=== PATIENT | male | born 1945 | race Caucasian/White ===

== ENCOUNTER → 2016-07-05 | Outpatient (CLI) | payer MEDICARE, OTHER ==
[2016-07-05 09:45] LABS: HEMATOCRIT 47.1 % (39.0-53.0); HEMOGLOBIN 16.1 g/dL (13.0-17.5)
== END | disposition home or self-care (01) ==
LOC: LAB 08:55
PROVIDERS: ATTEND Emergency Medicine
DX: D75.1 Secondary polycythemia (principal)
CPT/HCPCS: 36415; 85014; 85018; 99195

== ENCOUNTER → 2017-07-03 | Outpatient (CLI) | payer MEDICARE, OTHER ==
[2017-07-03 09:16] LABS: HEMATOCRIT 50.5 % (39.0-53.0); HEMOGLOBIN 17.1 g/dL (13.0-17.5)
== END | disposition home or self-care (01) ==
LOC: LAB 08:49
PROVIDERS: ATTEND Emergency Medicine
DX: D75.1 Secondary polycythemia (principal); E03.8 Other specified hypothyroidism
CPT/HCPCS: 36415; 85014; 85018; 99195

== ENCOUNTER → 2017-10-30 | Outpatient (CLI) | payer MEDICARE, OTHER ==
[2017-10-30 08:38] LABS: HEMATOCRIT 50.1 % (39.0-53.0); HEMOGLOBIN 16.8 g/dL (13.0-17.5)
== END | disposition home or self-care (01) ==
LOC: LAB 08:15
PROVIDERS: ATTEND Emergency Medicine
DX: D75.1 Secondary polycythemia (principal)
CPT/HCPCS: 36415; 85014; 85018; 99195

== ENCOUNTER → 2018-01-17 | Outpatient (CLI) | payer MEDICARE, OTHER ==
[2018-01-17 09:44] LABS: HEMATOCRIT 49.1 % (39.0-53.0); HEMOGLOBIN 16.5 g/dL (13.0-17.5)
== END | disposition home or self-care (01) ==
LOC: LAB 09:22
PROVIDERS: ATTEND Emergency Medicine
DX: D75.1 Secondary polycythemia (principal)
CPT/HCPCS: 36415; 85014; 85018; 99195

== ENCOUNTER → 2019-08-27 | Outpatient (CLI) | payer MEDICARE ==
[2019-08-27 08:29] LABS: HEMATOCRIT 51.2 % (39.0-53.0)
== END | disposition home or self-care (01) ==
LOC: LAB 08:04
PROVIDERS: ATTEND Emergency Medicine
DX: D75.1 Secondary polycythemia (principal)
CPT/HCPCS: 36415; 85014; 85018; 99195

== ENCOUNTER → 2019-12-02 | Outpatient (CLI) | payer MEDICARE ==
[2019-12-02 09:22] LABS: HEMATOCRIT 50.3 % (39.0-53.0); HEMOGLOBIN 16.6 g/dL (13.0-17.5)
== END | disposition home or self-care (01) ==
LOC: LAB 08:43
PROVIDERS: ATTEND Emergency Medicine
DX: D76.1 Hemophagocytic lymphohistiocytosis (principal)
CPT/HCPCS: 36415; 85014; 85018; 99195

== ENCOUNTER → 2020-02-24 | Outpatient (CLI) | payer MEDICARE ==
[2020-02-24 09:10] LABS: HEMATOCRIT 50.8 % (39.0-53.0); HEMOGLOBIN 16.7 g/dL (13.0-17.5)
== END ==
LOC: LAB 08:34
PROVIDERS: ATTEND Emergency Medicine
DX: D75.1 Secondary polycythemia (principal)
CPT/HCPCS: 36415; 85014; 85018; 99195

== ENCOUNTER → 2020-06-17 | Outpatient (CLI) | payer MEDICARE ==
[2020-06-17 08:09] LABS: HEMATOCRIT 48.3 % (39.0-53.0); HEMOGLOBIN 16.1 g/dL (13.0-17.5)
== END | disposition home or self-care (01) ==
LOC: LAB 07:45
PROVIDERS: ATTEND Emergency Medicine
DX: D75.1 Secondary polycythemia (principal)
CPT/HCPCS: 36415; 85014; 85018; 99195

== ENCOUNTER → 2020-09-28 | Outpatient (CLI) | payer MEDICARE ==
[2020-09-28 07:59] LABS: HEMATOCRIT 46.7 % (39.0-53.0); HEMOGLOBIN 15.6 g/dL (13.0-17.5)
== END ==
LOC: LAB 07:29
PROVIDERS: ATTEND Emergency Medicine
DX: D75.1 Secondary polycythemia (principal)
CPT/HCPCS: 36415; 85014; 85018; 99195

== ENCOUNTER → 2021-01-09 | Outpatient (CLI) | payer MEDICARE ==
[2021-01-09 09:51] LABS: HEMATOCRIT 48.5 % (39.0-53.0); HEMOGLOBIN 16.2 g/dL (13.0-17.5)
== END ==
LOC: LAB 09:24
PROVIDERS: ATTEND Emergency Medicine
DX: D75.1 Secondary polycythemia (principal)
CPT/HCPCS: 36415; 85014; 85018; 99195

== ENCOUNTER → 2021-04-10 | Outpatient (CLI) | payer MEDICARE ==
[2021-04-10 08:33] LABS: HEMATOCRIT 50.7 % (39.0-53.0); HEMOGLOBIN 16.9 g/dL (13.0-17.5)
== END | disposition home or self-care (01) ==
LOC: LAB 07:57
PROVIDERS: ATTEND Emergency Medicine
DX: D75.1 Secondary polycythemia (principal)
CPT/HCPCS: 36415; 85014; 85018; 99195

== ENCOUNTER → 2021-06-07 | Outpatient (CLI) | payer MEDICARE ==
[2021-06-07 08:48] LABS: BASO # 0.1 x10^3/uL (0.0-0.2); BASO % 1 % (0-3); EOS # 0.3 x10^3/uL (0.0-0.7); EOS % 4 % (0-3); HEMATOCRIT 50.3 % (39.0-53.0); HEMOGLOBIN 16.5 g/dL (13.0-17.5); LYMPH # 2.7 x10^3/uL (1.0-4.8); LYMPH % 31 % (24-48); MEAN CORPUSCULAR HEMOGLOBIN 28 pg (25-35); MEAN CORPUSCULAR HGB CONC 33 g/dL (31-37); MEAN CORPUSCULAR VOLUME 84 fL (79-100); MONO # 0.7 x10^3/uL (0.0-1.1); MONO % 9 % (0-9); NEUT # 4.8 x10^3uL (1.8-7.7); NEUT % 56 % (31-73); PLATELET COUNT 243 x10^3/uL (140-400); RED BLOOD COUNT 5.97 x10^6/uL (4.30-5.70); RED CELL DISTRIBUTION WIDTH 17.4 % (11.5-14.5); WHITE BLOOD COUNT 8.5 x10^3/uL (4.0-11.0)
[2021-06-07 09:06] LABS: ALBUMIN 3.9 g/dL (3.4-5.0); ALBUMIN/GLOBULIN RATIO 1.1 (1.0-1.7); CALCIUM 8.8 mg/dL (8.5-10.1); CREATININE 1.2 mg/dL (0.7-1.3); GFR 59.3; POTASSIUM 3.9 mmol/L (3.5-5.1); TOTAL BILIRUBIN 0.7 mg/dL (0.2-1.0); TOTAL PROTEIN 7.5 g/dL (6.4-8.2)
[2021-06-08 01:07] LABS: TESTOSTERONE TOTAL 202 ng/dL (264-916)
== END ==
LOC: LAB 07:49
PROVIDERS: ATTEND Emergency Medicine
DX: D75.1 Secondary polycythemia (principal); E29.1 Testicular hypofunction
CPT/HCPCS: 36415; 80053; 80061; 82550; 84403; 85025

== ENCOUNTER → 2021-07-12 | Outpatient (CLI) | payer MEDICARE ==
[2021-07-12 08:15] LABS: HEMATOCRIT 49.1 % (39.0-53.0); HEMOGLOBIN 16.7 g/dL (13.0-17.5)
== END ==
LOC: LAB 07:42
PROVIDERS: ATTEND Emergency Medicine
DX: D75.1 Secondary polycythemia (principal)
CPT/HCPCS: 36415; 85014; 85018; 99195